=== PATIENT | female | born 2000 | race Caucasian/White ===

== ENCOUNTER 2022-05-11 04:57 | Emergency (ER) | payer SELFPAY ==
[2022-05-11 05:33] VITALS: TEMP 97.7; BMI 21.1
[2022-05-11] MEDS ORDERED: ACETAMINOPHEN 500 MG TABLET (FP) PO ONE (06:06)
[2022-05-11] MEDS ORDERED: ACETAMINOPHEN 325 MG TABLET (FP) ONE (06:33)
[2022-05-11] MEDS ORDERED: IBUPROFEN 400 MG TABLET (FP) PO ONE ×2 (08:34→08:39)
[2022-05-11 08:51] VITALS: BP 120/75; PULSE 65; RESP 18
== END 2022-05-11 08:51 | disposition home or self-care (01) ==
LOC: JER 04:57
DX: S69.91XA Unspecified injury of right wrist, hand and finger(s), initial encounter (principal)
CPT/HCPCS: 73090-TC-RT-FY; 73110-TC-RT-FY; 73130-TC-RT-FY; 73552-TC-RT-FY; 73562-TC-RT-FY; 84703; 99284-25